=== PATIENT | female | born 1995 | race Caucasian/White ===

== ENCOUNTER 2024-06-04 00:57 | Outpatient (CLI) | payer MEDICAID, SELFPAY ==
[2024-06-04 16:34] LABS: Panorama Kit Sent via Fed Ex
[2024-06-04 16:39] LABS: Abs Immature Grans 0.02 10^3/uL (0.0-0.06); Absolute Basophil Count 0.02 10^3/uL (0.0-0.2); Absolute Eosinophil Count 0.12 10^3/uL (0.0-0.7); Absolute Lymphocyte Count 3.08 10^3/uL (1.2-3.4); Absolute Monocyte Count 0.61 10^3/uL (0.1-0.8); Absolute Neutrophil Count 5.94 10^3/uL (1.2-6.7); Basophils % 0.2 %; Eosinophils % 1.2 %; HCT 38.9 % (36.0-46.0); Immature Grans % 0.2 %; Lymphocytes % 31.5 %; MCHC 33.4 % (32.0-36.0); MCV 90 fL (80-95); MPV 11.6 fL (8.0-11.0); Monocytes % 6.2 %; Neutrophils % 60.7 %; Platelet Count 257 10^3/uL (130-400); RBC 4.34 10^6/uL (3.93-5.22); RDW 11.9 % (11.7-14.6); RDW-SD 38.1 fL; WBC 9.79 10^3/uL (4.4-10.8)
[2024-06-04 16:51] LABS: Hemoglobin A1C 5.2 % (<5.7)
[2024-06-04 17:20] LABS: TSH (W/Ref FT4) 1.14 uIU/mL (0.36-3.74)
[2024-06-07 10:17] LABS: Hepatitis B Surface Ag Negative (Negative)
[2024-06-07 11:06] LABS: Hepatitis C Ab w Rflx HCV PCR Negative (Negative)
[2024-06-07 11:18] LABS: HIV-1/2 Ag & Ab Screen Negative (Negative)
[2024-06-07 12:02] LABS: Varicella IgG Antibody Positive (See Note)
[2024-06-07 12:13] LABS: Rubella IgG Ab (UVM) Positive (See Note)
[2024-06-08 21:49] LABS: Syphilis IgG w/Reflex Nonreactive (Nonreactive)
== END 2024-06-04 00:58 | disposition home or self-care (01) ==
LOC: LBO 00:57
PROVIDERS: Visit Provider Advanced Practice Midwife
DX: Z34.91 Encounter for supervision of normal pregnancy, unspecified, first trimester (principal)
CPT/HCPCS: 36415; 86787; 86803; 86850; 86900; 86901; 87340; 87389; 83036; 84443; 85025; 86762; 86780

== ENCOUNTER 2024-06-04 14:57 | Outpatient (REF) | payer MEDICAID, SELFPAY ==
[2024-06-04 16:51] LABS: *AMPHETAMINES SCREEN URINE Negative (Negative); *BARBITURATES SCREEN URINE Negative (Negative); *BENZODIAZEPINES SCREEN URINE Negative (Negative); Cannabinoids THC Positive (Negative); Cocaine Screen,Urine Negative (Negative); METHADONE URINE SCREEN Negative (Negative); OPIATES URINE SCREEN Negative (Negative)
[2024-06-04 16:54] LABS: Tricyclic Antidepressants Negative (Negative)
[2024-06-07 09:58] LABS: Fentanyl Scr w/Rfx Confirm Negative ng/mL (<1)
[2024-06-07 12:48] LABS: Chlamydia Result Negative (Negative); GC Result Negative (Negative)
[2024-06-09 11:08] LABS: Buprenorphine Negative ng/mL (Cutoff: 5.0); Norbuprenorphine Negative ng/mL (Cutoff: 2.5)
== END 2024-06-04 14:58 | disposition home or self-care (01) ==
LOC: LBN 14:57
PROVIDERS: Visit Provider Advanced Practice Midwife
DX: Z34.91 Encounter for supervision of normal pregnancy, unspecified, first trimester (principal)
CPT/HCPCS: 80307; 80348; 87491; 87591; 87086

== ENCOUNTER 2024-07-09 10:24 | Outpatient (CLI) | payer MEDICAID, SELFPAY ==
[2024-07-09 11:41] VITALS: BP 119/66; PULSE 76
--- NOTE | 2024-07-09 11:45 | DI.US_ITS ---
Exam(s) US OB CERVICAL LENGTH EXAM: US OB CERVICAL LENGTH CLINICAL HISTORY: bleeding, need cervical length. TECHNIQUE: Transvaginal cervical length determination ultrasound was performed. COMPARISON: US POCUS EXAM from 04/27/2024 FINDINGS: There is a single viable intrauterine gestation with cardiac activity identified-148 BPM. There is a normal amount of amniotic fluid. Cervical length measurements average 8 cm The endocervical canal is closed. Placenta is posterior grade 1 with marginal placenta previa. On a few images there appear to be placental lakes. However, rescanning a few minutes later fail to show the same findings. There is no obvious evidence of abruption IMPRESSION: Cervical length is 8 cm. There is no fluid in the endocervical canal.. The endocervical is closed. Posterior grade 1 placenta. No obvious abruption. There is marginal placenta previa DATA REPOSITORY:
[2024-07-09 11:56] VITALS: BP 119/67; PULSE 76; RESP 14; TEMP 36.7
== END 2024-07-09 15:21 ==
LOC: BCD 10:24 → OBS 11:40
PROVIDERS: Visit Provider Advanced Practice Midwife
DX: O26.852 Spotting complicating pregnancy, second trimester (principal); Z3A.17 17 weeks gestation of pregnancy
CPT/HCPCS: 76815; 87491; 87591; 87086; 87480; 87510; 87660

== ENCOUNTER 2024-07-30 00:16 | Outpatient (CLI) | payer MEDICAID, SELFPAY ==
--- NOTE | 2024-07-30 07:15 | DI.US_ITS ---
Exam(s) US OB 2-3 TRIMESTER EXAM: US OB 2-3 TRIMESTER CLINICAL HISTORY: 19 wk anatomy survey,Z34.90. TECHNIQUE: Transabdominal obstetrical ultrasound was performed. COMPARISON: US US OB CERVICAL LENGTH from 07/09/2024 FINDINGS: There is a single viable intrauterine gestation with cardiac activity identified-143 bpm. Amniotic fluid: There is a normal amount of amniotic fluid. Placental location: The placenta is posterior grade 1,with no evidence of placenta previa.The distanc e from the tip of the placenta to the internal cervical os is 5.6 cm ANATOMY: A 3 vessel umbilical cord is seen. A four-chamber cardiac view was obtained. Right and left ventricular outflow tracts were imaged. There are no obvious abnormalities of the spinal column evident. There is no obvious abnormal ity of the anterior abdominal wall. stomach and urinary bladder are identified and there is no evidence of hydronephrosis. No abnormalities of the upper lip region are identified. No evidence of choroid plexus cysts i n the brain. Dating parameters place this at approximately 20 weeks and 5 days gestational age. BPD measures 20 weeks and 4 days HC measures 20 weeks and 5 days AC measures 21 weeks and 2 days FL measures 20 weeks and 1 day Estimated weight is 374 gm-0 pounds, 13 ounces Fetus is at the 94th percentile on the Hadlock scale. IMPRESSION:: Single viable intrauterine gestation which is approximately 20 weeks and 5 days gestati onal age, implying an SONIA of 12/12/2024. There are no obvious anomalies evident on today's study. The placenta is posterior with no evidence of placenta previa. There is a normal amount of amniotic fluid. DATA REPOSITORY:
== END 2024-07-30 00:36 ==
LOC: DI 00:17
PROVIDERS: Visit Provider Advanced Practice Midwife
DX: Z34.92 Encounter for supervision of normal pregnancy, unspecified, second trimester (principal); Z3A.19 19 weeks gestation of pregnancy
CPT/HCPCS: 76805

== ENCOUNTER 2024-09-24 00:47 | Outpatient (CLI) | payer MEDICAID, SELFPAY ==
[2024-09-24 15:17] LABS: HCT 38.0 % (36.0-46.0); HGB 12.6 g/dL (11.2-15.7); MCH 30.1 pg (27.0-33.0); MCHC 33.2 % (32.0-36.0); MCV 91 fL (80-95); MPV 10.6 fL (8.0-11.0); Platelet Count 266 10^3/uL (130-400); RBC 4.19 10^6/uL (3.93-5.22); RDW 13.2 % (11.7-14.6); RDW-SD 43.1 fL; WBC 12.72 10^3/uL (4.4-10.8)
[2024-09-24 15:28] LABS: Glucose,1 Hr (Glucola) 104 mg/dL (80-140)
== END 2024-09-24 00:48 | disposition home or self-care (01) ==
LOC: LBO 00:51
PROVIDERS: Visit Provider Advanced Practice Midwife
DX: Z34.92 Encounter for supervision of normal pregnancy, unspecified, second trimester (principal)
CPT/HCPCS: 36415; 82950; 85027

== ENCOUNTER 2024-09-24 14:43 | Outpatient (REF) | payer MEDICAID, SELFPAY ==
[2024-09-24 16:27] LABS: Cannabinoids THC Positive (Negative); METHADONE URINE SCREEN Negative (Negative)
[2024-09-27 10:32] LABS: Fentanyl Scr w/Rfx Confirm Negative ng/mL (<1)
== END 2024-09-24 14:44 | disposition home or self-care (01) ==
LOC: LBN 14:43
PROVIDERS: Visit Provider Advanced Practice Midwife
DX: Z34.92 Encounter for supervision of normal pregnancy, unspecified, second trimester (principal)
CPT/HCPCS: 80307; 80348

== ENCOUNTER 2024-11-19 14:43 | Outpatient (REF) | payer MEDICAID, SELFPAY | END 2024-11-19 14:44 | disposition home or self-care (01) | LOC: LBN 14:43 | PROVIDERS: Visit Provider Advanced Practice Midwife | DX: Z34.93 Encounter for supervision of normal pregnancy, unspecified, third trimester (principal) | CPT/HCPCS: 87081 ==

== ENCOUNTER 2024-12-03 05:37 | Inpatient (IN) | payer MEDICAID, SELFPAY ==
[2024-12-03] VITALS (22 sets, daily range): BP systolic 110–166; BP diastolic 56–83; PULSE 56–91; RESP 18–20; TEMP 35.8–36.6; O2SAT 98
--- NOTE | 2024-12-03 07:30 | HPE_ITS ---
Date of service: 12/03/24 Time of Service: 07:30 Assessment and Plan Assessment and plan (1) Spontaneous onset of labor: Status: Acute Assessment and plan: Admit to Center and routine admission labs. Comfort measures. Will begin GBS prophylaxis with penicillin per protocol. reviewed risks and benefits of labor augmentation or awaiting natural labor. Aida prefers to await natural labor and she prefers he minimum interventions if possible. She agrees to GBS prophylaxis and that was ordered. Due to marijuana use, UDS and fentanyl and burenorphine testing ordered. Anticipate . OB-HPI Labor/Delivery History of Present Illness Reason for Visit: Labor and Ruptured Membranes Chief Complaint: Uterine Contractions; Suspected Rupture of Membranes , Associated Signs and Symptoms of Suspected ROM: mild strength contractions. SONIA Calculator Estimated Delivery Date Method Current WG Current Estimate 12/19/24 Ultrasound #1 37w 5d Other Estimates 12/05/24 LMP (Certain) 39w 5d Comments: Aida reported leaking of large amounts of clear fluid at 0200. She came to the center and reports irregular mild contractions. History of Present Expected Delivery Route/Plan - CNM FOB/boyfriend - Rainer Rendon (his first child) BB yes to circ Hired Crissy Sandhu as breastfeeding peer counselor, plans unmedicated Plans unmedicated , interested in hydrotherapy (room if available) and H&K position GBS POSITIVE, recommend PCN prophylaxis during labor Specific Issues/Plan 1. BMI 34, [id number]=9.2 2. 5P screen+, MJ use, initial UDS +THC, 28 wk UDS +THC, Family Care plan with Sherri Martinez 11/30 3. Lactating, trying to wean 15 month old, weaned 4. cfDNA low risk/male 5. contractions 16w5d with spotting, cervical length 8cm, +BV, rx'ed Flagyl, 6. HSV-Genital: Valtrex 1000 mg PO daily for PPx at 36 weeks (Rx sent 11/05) Assessment: History Reviewed & Current Informed Consent Informed Consent: Risk,Benefits,Alternatives Discussed (Discussed augmentation of labor or awaiting spontaneous labor. Aida prefers to await spontaneous labor. ) PFSH All Active Problems (Updated 12/03/24 @ 07:35 by Abigail Suárez CNM) Spontaneous onset of labor (Acute) Other specified counseling (Acute) Pt shared she has some worries about depression and/or anxiety, plan to est. with a counselor. 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 (Acute) Marijuana use during (Acute) (Acute) Carpal tunnel syndrome (Acute) Breast feeding status of mother (Acute) Medical History (Updated 12/03/24 @ 07:35 by Abigail Suárez CNM) Oral contraceptive use Missed menses Dysmenorrhea No pertinent past medical history Surgical History (Updated 04/02/24 @ 09:50 by Abigail Suárez CNM) H/O eye surgery Hx of tonsillectomy [place] teeth extracted No pertinent past surgical history Family History (Updated 04/02/24 @ 09:51 by Abigail Suárez CNM) Paternal Grandmother Cancer Maternal Grandfather Cancer Maternal Grandmother Cancer Social History (Updated 05/05/24 @ 20:30 by Cristela Laird MD) Smoking/Tobacco Use Status: Never Smoking risk assessment performed?: Yes Alcohol Intake: current Alcohol Intake frequency: a few times a month Drug use: Daily Substance use type: marijuana Household members: family Housing: house Number of Children: 2 current occupation: Works at [employer] Sexually active: Yes Do you think of yourself as: straight/heterosexual Current gender identity: female Additional Social history: pt was supposed to be buying her house today Female Reproductive History Menstrual control method: pills History History 2 Para 1 Hx # Term Pregnancies 1 Multiple births 0 Hx # Pregnancies 0 Ectopic pregnancies 0 AB induced 0 Hx Number of Living Children 1 AB spontaneous 0 Past Pregnancies Del. Date GA/Weeks # Preg Succ Route Wgt Sex Labor Lgth Anesth esia Location Prov Complic 02/26/23 40 No Yes vaginal 6 lb 6 oz Male 5 hrs [facility] Delivery Date: 02/26/23 Last Updated by: Denice Jarvis [email or web address] , unmedicated Meds Allergies and Home Medications Allergies Allergy/AdvReac Type Severity Reaction Status Date / Time No Known Allergies Allergy Verified 11/30/24 14:21 Home Medications ?Medication ?Instructions ?Recorded ?Confirmed ?Type ascorbic acid (vitamin C) 250 mg 250 mg PO DAILY 11/2411/30/24 History tablet magnesium 250 mg tablet 250 mg PO DAILY PRN 04/02/24 11/30/24 History melatonin 5 mg capsule 5 mg PO DAILY 04/27/2411/30 History acyclovir 400 mg tablet 400 mg PO DAILY #30 tabs 07/2511/30/24 Rx vitamins no.180-ferrous 1 tab PO DAILY #60 ta bs 07/02/24 11/30/24 Rx fumarate 27 mg-folic acid 1 mg tablet ( Plus Vitamin-Mineral) valacyclovir 500 mg tablet 500 mg PO BID 11/05/24 09/ History valacyclovir 500 mg tablet 500 mg PO BID #90 tabs 07/2511/30/24 Rx (Valtrex) Exam Physical Exam Vital signs: Pulse BP 71 120/63 12/03/24 06:30 12/03/24 06:30 Vital Signs Reviewed: Yes Constitutional Constitutional: no acute distress Detailed Labor and Delivery Exam Dilation: 1.5 Effacement (%): 25 station: -3 Cervix position: posterior Consistency: soft Finnegan Score: Cervical Points Exam 0 1 2 3 Dilation Closed 1-2cm 3-4 cm 5-6cm Effacement 0-30% 40-50% 60-70% 80% Consistency Firm Medium Soft Station -3 -2 -1,0 +1,+2 Position Posterior Mid Anterior FINNEGAN Score(Cervical Ripeness Score): 3 Amniotic Membrane Status: Ruptured Rupture Method: Spontaneous Amniotic Fluid: Clear Pooling: Positive Monitor Mode: External Contraction Frequency(min): every 4-5 Contraction Duration(sec): 50-60 Contraction Intensity: Mild/Moderate Fetus A Heart Rate Baseline: 140 Monitor Accelerations: 15 X 15 Monitor Decelerations: None Variability: Moderate (6-25 BPM) Presentation: Cephalic Categories: Category I Est. Weight: 8 lb Date of Membrane Rupture: 12/03/24 Time of Membrane Rupture: 02:00 HEENT Exam HEENT Exam: Normal Respiratory Exam Respiratory Exam: Normal Cardiovascular Exam Cardiovascular Exam: Normal Abdominal Exam Abdominal Exam: Normal Exam Exam: Normal Extremities Exam Extremities Exam: Normal Skin Exam Skin Exam: Normal Psychiatric Exam Psychiatric Exam: Normal Risk Assessment Risk for Shoulder Dystocia Historical/Initial OB: POSITIVE FOR: Pre- BMI>30; NEGATIVE FOR: Pelvic Abnormality, Previous Shoulder Dystocia or Previous Macrosomia 36 Weeks: NEGATIVE FOR: Current Gestational DM, EFW>4500gms or Maternal Weight Gain>40lbs 40 Weeks: NEGATIVE FOR: EFW> 4500 gms, Maternal Weight Gain >40lb or Post Dates Increased Risk?: No Risk for Pre-Eclampsia Daily Dose ASA Indicated: No Date Initiated/Initials: not indicated Yes, if one or more: NEGATIVE FOR: Hx Pre-E/Gest HTN, Chronic HTN, Multiple Gestation, Pre-gestational DM, Renal Disease, Systemic Lupus or APA Syndrome Yes, if 2 or more: POSITIVE FOR: BMI>30; NEGATIVE FOR: Nulliparity, Age>= 35 yrs, >10yr btwn pregnancies, ethinicty, Mother/Sister w/ Pre-E or Previous IUGR Risk for Post- Hemorrhage Initial: NEGATIVE FOR: Multiple Gestation, Previous PPH, Known Clotting Deficiency, Grand Multiparity or Anticoagulation 36 Weeks: NEGATIVE FOR: Anemia, hgb<10, Low platelets(thrombocytopenia), Gestational HTN or Pre-E, Polyhydraminios or EFW>4500gms 40 Weeks: NEGATIVE FOR: Anemia, hgb<10, Low platelets (thrombocytopenia), Gestation HTN or Pre-E, Polyhydraminios or EFW>4500gms At Risk?: No Risks Reviewed Risks Reviewed Upon Admission: Yes
[2024-12-03] MEDS: Penicillin G POT. 5,000,000 UNITS in Normal Saline 100 ML 200 UNITS IVPB (08:34)
[2024-12-03] MEDS: valACYclovir 1,000 MG TAB 1000 MG PO (08:55)
--- NOTE | 2024-12-03 08:58 | NUR.NOTE ---
Nursing Note: Pt is calm, appears comfortable, resting in dark room. Saline lock intact. First dose of Pennicillin infused well. VSS. Pt reports fluid has remained clear. Urine sample collected as ordered.Supportive SO is at bedside.
[2024-12-03 09:29] LABS: Abs Immature Grans 0.11 10^3/uL (0.0-0.06); HCT 37.0 % (36.0-46.0); HGB 12.4 g/dL (11.2-15.7); Immature Grans % 0.9 %; MCH 29.7 pg (27.0-33.0); MCHC 33.5 % (32.0-36.0); MCV 89 fL (80-95); MPV 11.5 fL (8.0-11.0); Platelet Count 227 10^3/uL (130-400); RBC 4.17 10^6/uL (3.93-5.22); RDW 12.7 % (11.7-14.6); RDW-SD 41.3 fL; WBC 12.86 10^3/uL (4.4-10.8)
[2024-12-03 10:04] LABS: Cannabinoids THC Positive (Negative); METHADONE URINE SCREEN Negative (Negative)
--- NOTE | 2024-12-03 11:10 | NUR.NOTE ---
Nursing Note:Pt is in room on birthing ball and using yoga mat alternating. Discussed nipple stim with pt. Pt would like to avoid Pitocin if possible .
[2024-12-03] MEDS: Penicillin G POT. 3,000,000 UNITS in Normal Saline 50 ML 100 UNITS IVPB ×2 (12:36→16:25)
--- NOTE | 2024-12-03 14:17 | W.PM.OBNL1 ---
Date of service: 12/03/24 Time of Service: 14:17 Informed Consent Informed Consent: Induction of Labor and Risk,Benefits,Alternatives Discussed Pelvic Exam Dilation: 1.5 Effacement (%): 20 station: -4 Position: LOP (scanned with bedside u/s to confirm cephalic presentation) Cervix Position: posterior Consistency: firm Contractions Monitor Mode: External Contraction Frequency(min): rare Intensity: Mild Fetus A Monitor: External (US) Heart Rate Baseline: 135 Presentation: Cephalic Variability: Moderate (6-25 BPM) Categories: Category I Accelerations: Present Decelerations: None Amniotic Membrane Status: Ruptured Rupture Method: Spontaneous Amniotic Fluid: Clear Date of Membrane Rupture: 12/03/24 Time of Membrane Rupture: 01:00 Assessment and Plan Assessment and plan (1) PROM (premature rupture of membranes): Status: Acute Assessment and plan: A: 29 yo @ 37+5 wks, PROM 0100 today, clear fluid 12 hours after ROM not in labor, cephalic presentation confirmed via u/s GBS+, has received 2 doses PCN prophylaxis Was taking valtrex for genital HSV, no prodromal sx or lesions reported or visible P: Pt consents to misoprostel for cervical ripening and induction of labor Will begin with 50 mcg PO, encourage rest while waiting for response Anticipate , Dr. Ellis aware of pt status Objective Abnormal lab results 12/03/24 12/03/24 Range/Units 08:00 09:14 WBC 12.86 H (4.4-10.8) 10^3/uL MPV 11.5 H (8.0-11.0) fL Absolute Neutrophils 8.76 H (1.2-6.7) 10^3/uL Ur THC Screen Positive A (Negative) Temp Pulse Resp BP Pulse Ox 97.3 F L 57 L 20 119/62 98 12/03/24 12:44 12/03/24 12:34 12/03/24 12:44 12/03/24 12:34 12/03/24 11:09 Laboratory Results WBC 12.86 10^3/uL (4.4-10.8) H 12/03/24 09:14 RBC 4.17 10^6/uL (3.93-5.22) 12/03/24 09:14 Hgb 12.4 g/dL (11.2-15.7) 12/03/24 09:14 Hct 37.0 % (36.0-46.0) 12/03/24 09:14 MCV 89 fL (80-95) 12/03/24 09:14 MCH 29.7 pg (27.0-33.0) 12/03/24 09:14 MCHC 33.5 % (32.0-36.0) 12/03/24 09:14 RDW 12.7 % (11.7-14.6) 12/03/24 09:14 Plt Count 227 10^3/uL (130-400) 12/03/24 09:14 MPV 11.5 fL (8.0-11.0) H 12/03/24 09:14 Immature Gran % 0.9 % 12/03/24 09:14 Neutrophils % 68.1 % 12/03/24 09:14 Lymphocytes % 24.1 % 12/03/24 09:14 Monocytes % 5.6 % 12/03/24 09:14 Eosinophils % 1.1 % 12/03/24 09:14 Basophils % 0.2 % 12/03/24 09:14 Nucleated RBC % 0.0 % (0.0-0.3) 12/03/24 09:14 Absolute Neutrophils 8.76 10^3/uL (1.2-6.7) H 12/03/24 09:14 Absolute Lymphocytes 3.10 10^3/uL (1.2-3.4) 12/03/24 09:14 Absolute Monocytes 0.72 10^3/uL (0.1-0.8) 12/03/24 09:14 Absolute Eosinophils 0.14 10^3/uL (0.0-0.7) 12/03/24 09:14 Absolute Basophils 0.03 10^3/uL (0.0-0.2) 12/03/24 09:14 Urine Opiates Screen Negative (Negative) 12/03/24 08:00 Urine Methadone Screen Negative (Negative) 12/03/24 08:00 Ur Barbiturates Screen Negative (Negative) 12/03/24 08:00 Ur Tricyclics Screen Negative (Negative) 12/03/24 08:00 Ur Amphetamines Screen Negative (Negative) 12/03/24 08:00 U Benzodiazepines Scrn Negative (Negative) 12/03/24 08:00 Urine Cocaine Screen Negative (Negative) 12/03/24 08:00 Ur THC Screen Positive (Negative) A 12/03/24 08:00 ABO/Rh O Positive 12/03/24 09:14 Antibody Screen NEGATIVE 12/03/24 09:14 Vital Signs Reviewed: Yes Objective Narrative Objective Narrative: Pt appears comfortable, calm and conversational Afebrile, normotensive Subjective Interval history since last seen: Pt has been resting and then ambulating in her attempts to increase her contraction pattern without progress. Has received 2 doses of PCN for GBS status
--- NOTE | 2024-12-03 14:26 | NUR.NOTE ---
Nursing Note: Saskia in with pt discussing options to help with cervical ripening if needed. Plans an SVE.
[2024-12-03] MEDS: miSOPROStol 50 MCG TAB PO (15:00)
--- NOTE | 2024-12-03 16:10 | NUR.NOTE ---
Nursing Note:Hat removed from toilet per Saskia, for now I and O's deferred.
[2024-12-03] MEDS: Normal Saline Flush 10 ML SYR IVP (16:28)
--- NOTE | 2024-12-03 18:56 | NUR.NOTE ---
Nursing Note: CNM called to room by Coding Machine Operator asking for vag exam for pt.
--- NOTE | 2024-12-03 19:20 | W.PM.OBNL1 ---
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
[2024-12-03] MEDS: fentaNYL 100 MCG/2 ML VIAL 50 MCG IVP (21:39)
--- NOTE | 2024-12-03 21:41 | W.PM.OBNL1 ---
Date of service: 12/03/24 Time of Service: 21:41 Informed Consent Informed Consent: Risk,Benefits,Alternatives Discussed and Other (IV narcotic analgesia) Pelvic Exam Dilation: 7 Effacement (%): 90 station: -1 Cervix Position: mid Contractions Monitor Mode: External Contraction Frequency(min): q4-6 Intensity: Moderate/Strong Fetus A Monitor: External (US) Heart Rate Baseline: 140 FHR Rhythm: Regular Characteristics: Normal Assessment and Plan Assessment and plan (1) PROM (premature rupture of membranes): Status: Acute Assessment and plan: A: Need for pain management, potential need for pitocin augmentation Progression to 7 cm and descent to -1 P: Fentanyl 50 mcg IVP now, Pitocin augmentation ordered Dr. Ellis notified of pt status Anticipate Objective Vital Signs Reviewed: Yes Objective Narrative Objective Narrative: Pt vocalizing with contractions, changing positions Subjective Interval history since last seen: Nitrous not helpful now, pt requests IV narcotic analgesia, will consent to pitocin augmentation if indicated
[2024-12-03] MEDS: Oxytocin/Normal Saline 30 UNIT/500 ML BAG 95 UNITS IV (22:22)
--- NOTE | 2024-12-03 22:33 | W.OBDELIVERY ---
Date of service: 12/03/24 Time of Service: 22:33 OB Labor/ Delivery Information Baby A Delivery Delivery Method: Spontaneaous Presentation: Cephalic Cephalic Position: Vertex Vertex Position: Left Occipital Anterior Cord Description-Baby A: 3 Vessels and Clamped/Cut Amniotic Fluid: Clear Quantitative Blood Loss: 100 ml Delivery Outcome: Liveborn Infant Transferred: Remains with Mother Note: Pt relaxed well after fentanyl was given, positioned RLP until pt began to feel rectal pressure and she moved to kneeling on the bed, 2nd stage huddle was held and accomplished shortly thereafter of a vigorous male over intact perineum, infant dried and passed between thighs to mother's arms, then pt assisted to semifowlers, pitocin bolus begun, cord clamped then cut by FOB and cord blood was collected, delivery of Cui placenta intact with 3 VC. Vulva and vagina inspected and found intact without laceration, fundus firm below umbilicus, minimal lochia, strong family bonding observed, apgars 9/9, weight 3000 gm. Providers Nurse Irradiated Fuel Handler: Denice Alvarado Nurse: Ev Lea Nurse: Farzana Alvarado Labor/Delivery Information Number of Babies in Womb: 1 Steroids Given: None Reason Steroids Not Administered: N/A Group Beta Strep: Positive Antibiotics Administered: Yes Number of Doses of Antibiotics: 3 Rubella Status: Immune Blood Type: O+ Varicella Immunity: Immune Medication in Delivery: pitocin Shoulder Dystocia: No Stages of Labor Onset of Labor Date: 12/03/24 Onset of Labor Time: 02:00 Complete Dilatation Date: 12/03/24 Complete Dilatation Time: 22:05 Labor - Stage 1 Duration: 20 hours and 5 minutes ROM Baby A: 12/03/24 ROM Baby A: 01:00 ROM Total Time- Baby A: [id number] Infant Delivery Date-Baby A: 12/03/24 Infant Delivery Time-Baby A: 22:12 Labor Stage 2 Duration: 7 minutes Placenta Delivery Date-Baby A: 12/03/24 Placenta Delivery Time-Baby A: 22:18 Labor-Stage 3 Duration: 6 minutes Total Length of Labor-Baby A: 20 hours and 12 minutes Placenta Status: Delivered Baby A Gender: Male Gestational Status: Early Term (37-38.6 wks) Gestational Age in Weeks/Days: 37 Weeks and 5 Days weight: 6 lb 9.822 oz Weight Comment: 3000 gms Score-1 Minute Interval(Baby A) Heart Rate-1 minute: 100 BPM or Greater Respiratory Effort- 1 minute: Spontaneous/Strong Cry Muscle Tone-1 minute: Active Movement Reflex Response-1 minute: Prompt Response Color-1 minute: Bluish Hands or Feet Score-5 Minute Interval(Baby A) Heart Rate- 5 minute: 100 BPM or Greater Respiratory Effort-5 minute: Spontaneous/Strong Cry Muscle Tone-5 minute: Active Movement Reflex Response-5 minute: Prompt Response Color-5 minute: Bluish Hands or Feet
[2024-12-03] MEDS: Acetaminophen 325 MG TAB 650 MG PO (22:57)
[2024-12-03] MEDS: Docusate Sodium 100 MG CAP PO (22:57)
[2024-12-03] MEDS: Ibuprofen 600 MG TAB PO (22:57)
[2024-12-03] MEDS: Dibucaine 1% 28 GM TUBE TP (22:59)
[2024-12-03] MEDS: Hamamelis Leaf/Glycerin 100 EACH BOX PR (22:59)
[2024-12-04] VITALS (8 sets, daily range): BP systolic 108–150; BP diastolic 55–89; PULSE 58–69; RESP 16–18; TEMP 36.3–36.6; O2SAT 100
[2024-12-04] MEDS: Acetaminophen 325 MG TAB 650 MG PO ×2 (04:10→08:46)
--- NOTE | 2024-12-04 07:43 | NUR.NOTE ---
Nursing Note:Pt was asleep but stirred upon this RN entering room. Last BF was around 4 am. Pt and encouraged to wake up baby and initiate feeding before 0800.
[2024-12-04] MEDS: Docusate Sodium 100 MG CAP PO ×2 (08:48→20:51)
[2024-12-04] MEDS: Ibuprofen 600 MG TAB PO (08:49)
[2024-12-04] MEDS: valACYclovir 1,000 MG TAB 1000 MG PO (08:50)
--- NOTE | 2024-12-04 11:46 | OBPPV_ITS ---
Date of service: 12/04/24 Time of Service: 11:00 Assessment and Plan Assessment and plan (1) Term delivered: Status: Acute Assessment and plan: A: PPD#1, nml recovery Satisfied with experience, off to a good start P: Plan for discharge dependent on infant status regarding jaundice Pt desires circumcision prior to discharge Routine PP care and BF support Subjective Subjective Patient comments: No complaints, Pain well controlled, Tolerating diet and [place] present Patient's Mood: happy [place] baby status: Doing well, Nursing well, Rooming in and Strong Bonding Observed [place] feeding status: Exclusively breast feeding Exam Physical Exam Vital signs: Temp Pulse Resp BP Pulse Ox 97.9 F 72 16 128/76 100 12/05/24 07:15 12/05/24 07:15 12/05/24 07:15 12/05/24 07:15 12/04/24 19:41 Vital Signs Reviewed: Yes Constitutional Constitutional: no acute distress and cooperative HEENT Exam HEENT Exam: Normal Neck Exam Neck Exam: Normal Breast Exam Bilateral: Breast Exam: Normal and Soft Nipple Exam: Normal and Uninjured Respiratory Exam Respiratory Exam: Normal Cardiovascular Exam Cardiovascular Exam: Normal Abdominal Exam Abdomen: Other (soft, nontender) Fundal Exam Fundus: Below Umbilicus and Firm Rectal Exam Rectal Exam: Normal Exam Perineum: Intact Extremities Exam Extremity Exam: Normal, Full ROM and Warm to Touch Back/Spine/Pelvis Exam Back Exam: Normal Skin Exam Skin Exam: Normal Neurological Exam Neurological Exam: Normal Psychiatric Exam Psychiatric Exam: Normal
[2024-12-04] MEDS: Calcium Carbonate *TUMS* 500 MG CHEW 1000 MG PO (16:26)
[2024-12-05 05:37] VITALS: BP 129/83
[2024-12-05] MEDS: Acetaminophen 325 MG TAB 650 MG PO (05:37)
[2024-12-05 07:15] VITALS: BP 128/76; PULSE 72; RESP 16; TEMP 36.6
--- NOTE | 2024-12-05 09:52 | OBPPV_ITS ---
Date of service: 12/05/24 Time of Service: 09:52 Assessment and Plan Assessment and plan (1) Term delivered: Status: Acute Assessment and plan: A: PPD#2, nml recovery Satisfied with experience, going well P: Plan for discharge today Pt desires circumcision prior to discharge Desires POP's for BCM F/up at 2 & 6 wks [place] instructins reviewed and given to pt Subjective Subjective Patient comments: No complaints, Pain well controlled, Tolerating diet and [place] present Patient's Mood: happy [place] baby status: Doing well, Nursing well, Rooming in and Strong Bonding Observed feeding status: Exclusively breast feeding Exam Physical Exam Vital signs: Temp Pulse Resp BP Pulse Ox 97.9 F 72 16 128/76 100 12/05/24 07:15 12/05/24 07:15 12/05/24 07:15 12/05/24 07:15 12/04/24 19:41 Vital Signs Reviewed: Yes Constitutional Constitutional: no acute distress and cooperative HEENT Exam HEENT Exam: Normal Neck Exam Neck Exam: Normal Breast Exam Bilateral: Breast Exam: Normal and Soft Respiratory Exam Respiratory Exam: Normal Cardiovascular Exam Cardiovascular Exam: Normal Abdominal Exam Abdomen: Other (soft, nontender) Fundal Exam Fundus: Below Umbilicus and Firm Rectal Exam Rectal Exam: Normal Exam Perineum: Intact Extremities Exam Extremity Exam: Normal, Full ROM and Warm to Touch Back/Spine/Pelvis Exam Back Exam: Normal Skin Exam Skin Exam: Normal Neurological Exam Neurological Exam: Normal Psychiatric Exam Psychiatric Exam: Normal Hemorrrhage Note IV Site Left Hand: IV Catheter Gauge: 20
--- NOTE | 2024-12-05 12:33 | DSE_ITS ---
Date of service: 12/05/24 Time of Service: 12:33 DS: Diagnosis Discharge Diagnosis (1) Term delivered: Status: Acute Discharge Plan Disposition Patient Disposition: Home Condition: Good Discharge Details Reason For Visit: Labor and Ruptured Membranes Admit Date/Time: 12/03/24 05:38 Admit Provider: Abigail Suárez Attending Provider: Abigail Suárez Primary Care Provider: Unknown,Unknown Hospital Course Hospital Course: Admitted with PRO at term, after 12 hours of observation for spontaneous onset of labor without labor starting, 1 dose of misoprostel was given to good effect, on HD#2, nml course, discharge to home on PPD#2 Home Meds and New Rx's Prescriptions: No Action ascorbic acid (vitamin C) 250 mg tablet 250 mg PO DAILY magnesium 250 mg tablet 250 mg PO DAILY PRN melatonin 5 mg capsule 5 mg PO DAILY Plus Vitamin-Mineral 27 mg iron- 1 mg tablet 1 tab PO DAILY Qty: 60 4RF acyclovir 400 mg tablet 400 mg PO DAILY Qty: 30 12RF Discharge Instructions Additional Instructions: Please keep 2 and 6 wk appointments with the midwives, call for any and all concerns. Stand Alone Forms: BC Instructions, BC Post Vaginal Deliver Activity:: Activity as Tolerated Equipment/Supplies:: No Equipment Needed Diet:: Normal Diet OB:DS Summary Summary Vaginal Delivery Method: Spontaneaous Episiotomy Description: None Laceration Description: None Laceration Extension: N/A Contraception Discussed Contraception Discussed: Yes Contraceptive Plan: Control Pill/Patch, [place] Infant Gender-Baby A: Male weight: 6 lb 9.822 oz Status at Discharge Functional status at discharge: independent ambulation Overall status at discharge: patient is progressing back to baseline Mental Status: mental status grossly normal Speech and Movement: speech and movement normal and speech clear Mood: congruent mood Affect: normal affect Exam Physical Exam Vital signs: Temp Pulse Resp BP Pulse Ox 97.9 F 72 16 128/76 100 12/05/24 07:15 12/05/24 07:15 12/05/24 07:15 12/05/24 07:15 12/04/24 19:41 Constitutional Constitutional: no acute distress and cooperative HEENT Exam HEENT Exam: Normal Neck Exam Neck Exam: Normal Breast Exam Bilateral: Breast Exam: Normal and Soft Respiratory Exam Respiratory Exam: Normal Cardiovascular Exam Cardiovascular Exam: Normal Abdominal Exam Abdomen: Other (soft, nontender) Fundal Exam Fundus: Below Umbilicus and Firm Rectal Exam Rectal Exam: Normal Exam Perineum: Intact Extremities Exam Extremity Exam: Normal, Full ROM and Warm to Touch Back/Spine/Pelvis Exam Back Exam: Normal Skin Exam Skin Exam: Normal Neurological Exam Neurological Exam: Normal Psychiatric Exam Psychiatric Exam: Normal PFSH All Active Problems (Updated 12/05/24 @ 09:49 by Denice Alvarado) Term delivered (Acute) Other specified counseling (Acute) Pt shared she has some worries about depression and/or anxiety, plan to est. with a counselor. Marijuana use during (Acute) Carpal tunnel syndrome (Acute) Breast feeding status of mother (Acute) Medical History (Updated 12/05/24 @ 09:49 by Denice Alvarado) 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 Spontaneous onset of labor PROM (premature rupture of membranes) Oral contraceptive use Missed menses Dysmenorrhea No pertinent past medical history Surgical History (Updated 04/02/24 @ 09:50 by Abigail Suárez CNM) H/O eye surgery Hx of tonsillectomy [place] teeth extracted No pertinent past surgical history Family History (Updated 04/02/24 @ 09:51 by Abigail Suárez CNM) Paternal Grandmother Cancer Maternal Grandfather Cancer Maternal Grandmother Cancer Social History (Updated 05/05/24 @ 20:30 by Cristela Laird MD) Smoking/Tobacco Use Status: Never Smoking risk assessment performed?: Yes Alcohol Intake: current Alcohol Intake frequency: a few times a month Drug use: Daily Substance use type: marijuana Household members: family Housing: house Number of Children: 2 current occupation: Works at [employer] Sexually active: Yes Do you think of yourself as: straight/heterosexual Current gender identity: female Additional Social history: pt was supposed to be buying her house today Female Reproductive History Menstrual control method: pills History History 2 Para 1 Hx # Term Pregnancies 1 Multiple births 0 Hx # Pregnancies 0 Ectopic pregnancies 0 AB induced 0 Hx Number of Living Children 1 AB spontaneous 0 Past Pregnancies Del. Date GA/Weeks # Preg Succ Route Wgt Sex Labor Lgth Anesth esia Location [facility] 02/26/23 40 No Yes vaginal 6 lb 6 oz Male 5 hrs [facility]ORST[facility] L[facility] Delivery Date: 02/26/23 Last Updated by: Denice Jarvis [email or web address] , unmedicated DS: Data Vitals/I&O Vitals and I&O: Vital Signs Temperature 97.9 F 12/05/24 07:15 Temperature Source Tympanic 12/05/24 07:15 Pulse 72 12/05/24 07:15 Pulse Rhythm Regular 12/05/24 07:15 Respiratory Rate 16 12/05/24 07:15 Blood Pressure 128/76 12/05/24 07:15 Blood Pressure Mean 93 12/05/24 07:15 Pulse Oximetry 100 12/04/24 19:41 Pain Level 3 12/04/24 08:49 Comment Patient sitting up at bedside, talking. Denies pain. 12/04/24 19:41 Intake & Output 12/04/24 12/05/24 12/05/24 23:59 11:59 23:59 Other: Urine Color Yellow
[2024-12-06 09:58] LABS: Fentanyl Scr w/Rfx Confirm Negative ng/mL (<1)
== END 2024-12-05 14:30 | disposition home or self-care (01) | DRG 806 ==
PROVIDERS: Admitting Provider Advanced Practice Midwife; Visit Provider Advanced Practice Midwife
DX: O42.02 Full-term premature rupture of membranes, onset of labor within 24 hours of rupture (principal); O98.32 Other infections with a predominantly sexual mode of transmission complicating childbirth; Z37.0 Single live birth; O99.324 Drug use complicating childbirth; Z3A.37 37 weeks gestation of pregnancy; F12.90 Cannabis use, unspecified, uncomplicated; A60.09 Herpesviral infection of other urogenital tract; O99.824 Streptococcus B carrier state complicating childbirth
CPT/HCPCS: 36415; 80307; 80348; 86850; 86900; 86901; 59200; 85025; J2540; J3010